=== PATIENT | male | born 1950 | race African-American/Black ===

== ENCOUNTER 2022-04-01 09:59 | Day surgery (SDC) | payer MEDICARE, BC ==
[2022-03-27 12:33] VITALS: BMI 24.6
[2022-04-01] MEDS ORDERED: Lidocaine 2% MPF 10 ML AMP (For Epidural Use) ONE (10:52)
[2022-04-01] MEDS ORDERED: PROPOFOL 40 ML ONE (10:52)
[2022-04-01] MEDS ORDERED: PROPOFOL 20 ML ONE (10:52)
[2022-04-01] MEDS ORDERED: Fentanyl 100 MCG/2 ML VIAL ONE (11:43)
[2022-04-01] MEDS ORDERED: Midazolam HCl 2 mg/2 ml Vial ONE (11:43)
== END 2022-04-01 13:18 | disposition home or self-care (01) ==
LOC: CSHSDC 09:59
PROVIDERS: ATTEND Internal Medicine Gastroenterology
PROC: 0DJD8ZZ Inspection of Lower Intestinal Tract, Via Natural or Artificial Opening Endoscopic (ICD-10-PCS; principal; 2022-04-01)
PROC: 0DB98ZX Excision of Duodenum, Via Natural or Artificial Opening Endoscopic, Diagnostic (ICD-10-PCS; 2022-04-01)
PROC: 0DB78ZX Excision of Stomach, Pylorus, Via Natural or Artificial Opening Endoscopic, Diagnostic (ICD-10-PCS; 2022-04-01)
DX: K29.50 Unspecified chronic gastritis without bleeding (principal); K29.80 Duodenitis without bleeding; D64.9 Anemia, unspecified; K64.8 Other hemorrhoids; K31.7 Polyp of stomach and duodenum; K21.9 Gastro-esophageal reflux disease without esophagitis; K44.9 Diaphragmatic hernia without obstruction or gangrene; R13.10 Dysphagia, unspecified; Z86.010 Personal history of colon polyps; I10 Essential (primary) hypertension; E78.5 Hyperlipidemia, unspecified; M79.7 Fibromyalgia
CPT/HCPCS: 88305; J2250; J2704; J3010

== ENCOUNTER 2023-02-13 09:06 | Outpatient (CLI) | payer MEDICARE, BC | END 2023-02-13 09:07 | disposition home or self-care (01) | LOC: CSHRAD 09:06 | PROVIDERS: ATTEND Internal Medicine | DX: M79.672 Pain in left foot (principal); S92.352A Displaced fracture of fifth metatarsal bone, left foot, initial encounter for closed fracture | CPT/HCPCS: 36415; 82607; 82746; 83036; 83540; 83550; 85025 ==